=== PATIENT | female | born 1975 | race Caucasian/White ===

== ENCOUNTER 2021-08-30 17:57 | Inpatient (IN) | payer MEDICAID, SELFPAY ==
[2021-08-30 17:57] VITALS: BMI 33.9
[2021-08-30] MEDS: trazodone 50 mg Tablet PO (20:41)
[2021-08-30 21:15] VITALS: BP 121/85; PULSE 94; RESP 18; TEMP 36.9; O2SAT 96
[2021-08-31 06:00] VITALS: BP 99/63; PULSE 71; RESP 17; TEMP 36.7; O2SAT 96
[2021-08-31] MEDS: metformin 500 mg Tablet 1000 MG PO ×2 (08:23→17:29)
[2021-08-31] MEDS: hyDROXYzine 25 mg Capsule 50 MG PO (08:23)
[2021-08-31] MEDS: pantoprazole DR 40 mg Tablet PO (08:24)
[2021-08-31] MEDS: lisinopril 10 mg Tablet PO (08:24)
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
[2021-08-31] MEDS: venlafaxine ER (24HR) 150 mg Capsule PO (12:55)
[2021-08-31 14:00] VITALS: BP 102/69; PULSE 115; RESP 17; TEMP 36.6; O2SAT 97
[2021-08-31 20:28] VITALS: BP 102/73; PULSE 95; RESP 16; TEMP 36.5; O2SAT 95
[2021-08-31] MEDS: trazodone 50 mg Tablet PO (21:10)
[2021-09-01 06:00] VITALS: PULSE 72; RESP 16; TEMP 36.7; O2SAT 95
[2021-09-01] MEDS: venlafaxine ER (24HR) 150 mg Capsule PO (08:39)
[2021-09-01] MEDS: lisinopril 10 mg Tablet PO (08:39)
[2021-09-01] MEDS: metformin 500 mg Tablet 1000 MG PO ×2 (08:39→17:25)
[2021-09-01] MEDS: pantoprazole DR 40 mg Tablet PO (08:39)
[2021-09-01 14:00] VITALS: BP 111/74; PULSE 117; RESP 18; TEMP 36.3; O2SAT 96
[2021-09-01] MEDS: hyDROXYzine 25 mg Capsule 50 MG PO (15:08)
--- NOTE | 2021-09-01 15:08 | W.PM.NPUPNS ---
Subjective NPU Subjective: She says that she is doing better. She feels good about the Effexor and has not had any side effects. She is getting along well with the other patients. She feels like her depression is already getting better. Mental Status Exam MSE Comments: This is a 46-year-old overweight or obese female who appears approximately her stated age and is in no acute distress. She is well groomed and dressed in hospital scrubs. She is pleasant and cooperative with the evaluation. She has good eye contact. psychomotor activity is normal. Speech is at a regular rate and rhythm, normal volume, good articulation, not pressured. Alert, oriented X3 Attention and concentration appears to be good. Memory is intact Mood is depressed but better Affect is very mildly dysphoric. Thought process is logical and goal-directed. Thought content: Denies auditory and visual hallucinations. No delusions or paranoia are noted. No current suicidal ideation. He denies homicidal ideation. Fund of knowledge is average. Insight and judgment appear to be fairly good. Impulse control is poor. Cognition: Patient Appearance: Appropriate Ability to Follow Directions: Excellent Patient Orientation (long list): Person, Place, Time, Name, Age, Birthday, Month, Time of Day and Year Comprehension Ability: No Impairment Hallucination Type: None Delusion Description: Not Present Thought Process: Appropriate Affect: Affect Description: Appropriate Behavior: Patient Behavior: Appropriate Speech Pattern: Appropriate Vitals/I&O/Wt Last Vital Signs Temp 97.4 F L 09/01/21 14:00 Pulse 117 H 09/01/21 14:00 Resp 18 09/01/21 14:00 BP 111/74 09/01/21 14:00 Pulse Ox 96 09/01/21 14:00 Weight last 48 hrs Weight 95.254 kg A&P Assessment and plan (1) PTSD (post-traumatic stress disorder): Status: Acute (2) Suicidal ideation: Status: Acute (3) Major depressive disorder: Status: Acute Plan This is a 46-year-old female with PTSD and depression from childhood and other subsequent traumas with worsening over the last 6 months and suicidal ideation recently. Plan: 1. Continue current medication. We will change back to Effexor 150 mg for now and consider increasing or changing to Pristiq and probably adding Abilify. 2. Continue every 15 minute checks for safety. 3. Encourage individual, group and milieu therapies. 4. Encourage sober living treatment after discharge at the highest level of care to which she is willing to commit. 5. We will monitor for safety for herself in the community prior to discharge. Involuntary Hold Information 96 Hour Hold: 96 Hour Involuntary Admission: No Attestations NPU Medical Necessity Statement*: Inpatient hospitalization is medically necessary and the clinically appropriate intervention at this time. We will initiate medications and make changes as indicated. Coding Level of Care Code Acute Associate Project Manager for [facility] Fwd Diagnoses PTSD (post-traumatic stress disorder) F43.10 Suicidal ideation R45.851 Major depressive disorder F32.9
[2021-09-01 20:45] VITALS: BP 110/71; PULSE 99; RESP 16; TEMP 36.7; O2SAT 98
[2021-09-01] MEDS: trazodone 50 mg Tablet PO (20:56)
[2021-09-02 06:00] VITALS: RESP 17
[2021-09-02] MEDS: venlafaxine ER (24HR) 150 mg Capsule PO (08:16)
[2021-09-02] MEDS: venlafaxine ER (24HR) 75 mg Capsule PO (08:16)
[2021-09-02] MEDS: lisinopril 10 mg Tablet PO (08:16)
[2021-09-02] MEDS: pantoprazole DR 40 mg Tablet PO (08:16)
[2021-09-02] MEDS: metformin 500 mg Tablet 1000 MG PO ×2 (08:16→18:04)
[2021-09-02] MEDS: blistex lip oint 7 gm Tube 1 APPLIC TOPICAL (08:23)
--- NOTE | 2021-09-02 13:27 | W.PM.NPUPNS ---
Subjective NPU Subjective: She is doing very well. She is happy with the Effexor. She is sleeping well with the trazodone and would like to have that at home. Her daughter will come and get her when she is ready to leave. She denies any suicidal ideation for the last 2 days. She has been participating regularly in the group therapy. Mental Status Exam MSE Comments: This is a 46-year-old overweight or obese female who appears approximately her stated age and is in no acute distress. She is well groomed and dressed in hospital scrubs. She is pleasant and cooperative with the evaluation. She has good eye contact. psychomotor activity is normal. Speech is at a regular rate and rhythm, normal volume, good articulation, not pressured. Alert, oriented X3 Attention and concentration appears to be good. Memory is intact Mood is depressed but better Affect is very mildly dysphoric. Thought process is logical and goal-directed. Thought content: Denies auditory and visual hallucinations. No delusions or paranoia are noted. No current suicidal ideation. He denies homicidal ideation. Fund of knowledge is average. Insight and judgment appear to be fairly good. Impulse control is poor. Cognition: Patient Appearance: Appropriate Ability to Follow Directions: Excellent Patient Orientation (long list): Person, Place, Time, Name, Age, Birthday, Month, Time of Day and Year Comprehension Ability: No Impairment Hallucination Type: None Delusion Description: Not Present Thought Process: Appropriate Affect: Affect Description: Appropriate and Calm Behavior: Patient Behavior: Appropriate and Cooperative Speech Pattern: Appropriate and Clear Vitals/I&O/Wt Last Vital Signs Temp 98.1 F 09/01/21 20:45 Pulse 99 09/01/21 20:45 Resp 17 09/02/21 06:00 BP 110/71 09/01/21 20:45 Pulse Ox 98 09/01/21 20:45 A&P Assessment and plan (1) PTSD (post-traumatic stress disorder): Status: Acute (2) Suicidal ideation: Status: Acute (3) Major depressive disorder: Status: Acute Plan This is a 46-year-old female with PTSD and depression from childhood and other subsequent traumas with worsening over the last 6 months and suicidal ideation recently. Plan: 1. Continue current medication. Effexor increased to 225 mg today 2. Continue every 15 minute checks for safety. 3. Encourage individual, group and milieu therapies. 4. Encourage sober living treatment after discharge at the highest level of care to which she is willing to commit. 5. We will monitor for safety for herself in the community prior to discharge. Involuntary Hold Information 96 Hour Hold: 96 Hour Involuntary Admission: No Attestations NPU Medical Necessity Statement*: Inpatient hospitalization is medically necessary and the clinically appropriate intervention at this time. We will initiate medications and make changes as indicated. Coding Level of Care Code Acute Glue Jointer Operator for [facility] Diagnoses PTSD (post-traumatic stress disorder) F43.10 Suicidal ideation R45.851 Major depressive disorder F32.9
[2021-09-02 14:00] VITALS: BP 123/75; PULSE 105; RESP 18; TEMP 36.6; O2SAT 96
[2021-09-02] MEDS: trazodone 50 mg Tablet PO (21:10)
[2021-09-02 21:26] VITALS: BP 115/79; PULSE 101; RESP 16; O2SAT 97
[2021-09-03 06:00] VITALS: BP 117/83; PULSE 65; RESP 17; O2SAT 99
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
[2021-09-03] MEDS: lisinopril 10 mg Tablet PO (08:59)
[2021-09-03] MEDS: venlafaxine ER (24HR) 75 mg Capsule PO (08:59)
[2021-09-03] MEDS: pantoprazole DR 40 mg Tablet PO (08:59)
[2021-09-03] MEDS: venlafaxine ER (24HR) 150 mg Capsule PO (09:00)
[2021-09-03] MEDS: metformin 500 mg Tablet 1000 MG PO (09:00)
[2021-09-03 09:57] VITALS: BP 117/83; PULSE 65; RESP 17; O2SAT 99
== END 2021-09-03 11:43 | disposition home or self-care (01) | DRG 881 ==
PROVIDERS: Admitting Provider Psychiatry & Neurology Psychiatry; Visit Provider Psychiatry & Neurology Psychiatry
DX: F32.9 Major depressive disorder, single episode, unspecified (principal); R45.851 Suicidal ideations; F43.10 Post-traumatic stress disorder, unspecified; Z91.52 Personal history of nonsuicidal self-harm; Z62.819 Personal history of unspecified abuse in childhood; Z81.3 Family history of other psychoactive substance abuse and dependence; Z62.898 Other specified problems related to upbringing; Z91.410 Personal history of adult physical and sexual abuse; Z91.411 Personal history of adult psychological abuse; Z79.84 Long term (current) use of oral hypoglycemic drugs
CPT/HCPCS: 97150; 97165